=== PATIENT | male | born 1950 | race Caucasian/White ===

== ENCOUNTER → 2018-02-01 | Outpatient (CLI) | payer MEDICARE ==
--- NOTE | 2018-02-01 12:44 | US ---
EXAMINATION TYPE: US kidneys/renal and bladder DATE OF EXAM: 02/01/2018 COMPARISON: NONE CLINICAL HISTORY: N39.0 Urinary tract infection. EXAM MEASUREMENTS: Right Kidney: 11.4 x 4.6 x 5.0 cm Left Kidney: 11.4 x 6.5 x 6.7 cm Right Kidney: wnl Left Kidney: wnl Bladder: wnl Bilateral Jets seen: yes Incidental finding of cholelithiasis. There is no evidence for hydronephrosis at this point in time. No nephrolithiasis is seen. No raymond s are identified. The urinary bladder is anechoic. Bilateral ureteral jets are seen. Cortical medullary differentiation is maintained bilaterally. There is no ascites. IMPRESSION: Normal renal ultrasound. Cholelithiasis.
== END | disposition home or self-care (01) ==
LOC: RADUSWWP 10:03
PROVIDERS: ATTEND Internal Medicine
DX: K80.20 Calculus of gallbladder without cholecystitis without obstruction (principal)
CPT/HCPCS: 76770

== ENCOUNTER → 2020-02-03 | Outpatient (CLI) | payer MEDICARE ==
--- NOTE | 2020-02-03 15:07 | US ---
EXAMINATION TYPE: US kidneys/renal and bladder DATE OF EXAM: 02/03/2020 COMPARISON: NONE CLINICAL HISTORY: N39.0 UTI. Urine urges. No pain. EXAM MEASUREMENTS: Right Kidney: 10.7 x 4.9 x 5.1 cm Left Kidney: 10.7 x 5.0 x 5.7 cm Right Kidney: No hydronephrosis or masses seen Left Kidney: No hydronephrosis or masses seen Bladder: distended, anechoic Bilateral Jets seen IMPRESSION: 1. Normal renal ultrasound
== END | disposition home or self-care (01) ==
LOC: RADUSWWP 12:46
PROVIDERS: ATTEND Internal Medicine
DX: N39.0 Urinary tract infection, site not specified (principal)
CPT/HCPCS: 76770

== ENCOUNTER 2021-05-07 12:07 | Observation (INO) | payer MEDICARE ==
[2021-05-07] MEDS ORDERED: ASPIRIN 81 MG PO STA (13:10)
--- NOTE | 2021-05-07 13:12 | ED ---
General Adult HPI - General Chief complaint: Chest Pain Stated complaint: Chest pain Time Seen by Provider: 05/07/21 12:30 Source: patient, RN notes reviewed Mode of arrival: ambulatory Limitations: no limitations - History of Present Illness Initial comments: Patient is a pleasant 70-year-old male presenting to the emergency department chest discomfort. Symptoms have been waxing and waning the past 2-3 days. Symptoms are near resolved at this time. Symptoms were 5/10 prior to arrival. Discomfort feels like pressure. Patient has had a little bit of sweating today. No nausea. No diaphoresis. Patient has not noticed worsening symptoms with e xertion. - Related Data Home Medications Medication Instructions Recorded Confirmed Cholecalciferol [Vitamin D3 (25 50 mcg PO DAILY 05/07/21 05/07/21 Mcg = 1000 Iu)] lisinopriL [Zestril] 10 mg PO DAILY 05/07/21 05/07/21 Allergies Allergy/AdvReac Type Severity Reaction Status Date / Time No Known Allergies Allergy Verified 05/07/21 13:46 Review of Systems ROS Statement: Those systems with pertinent positive or pertinent negative responses have been documented in the HPI. ROS Other: All systems not noted in ROS Statement are negative. Constitutional: Denies: fever Eyes: Denies: eye pain ENT: Denies: ear pain Respiratory: Denies: cough, dyspnea Cardiovascular: Reports: as per HPI, chest pain Endocrine: Denies: fatigue Gastrointestinal: Denies: abdominal pain Genitourinary: Denies: dysuria Musculoskeletal: Denies: back pain Skin: Denies: rash Neurological: Denies: weakness Past Medical History Past Medical History: Hypertension Additional Past Medical History / Comment(s): UTIs, prostititis History of Any Multi-Drug Resistant Organisms: None Reported Past Surgical History: Hernia Repair Additional Past Surgical History / Comment(s): hemorrhoidectomy, prostate biopsy Past Psychological History: No Psychological Hx Reported Smoking Status: Never smoker Past Alcohol Use History: Occasional Past Drug Use History: None Reported General Exam Limitations: no limitations General appearance: alert, in no apparent distress Head exam: Present: normocephalic Eye exam: Present: normal appearance Neck exam: Present: normal inspection Respiratory exam: Present: normal lung sounds bilaterally. Absent: chest wall tenderness Cardiovascular Exam: Present: normal rhythm, bradycardia, normal heart sounds Expanded Peripheral pulses: 2+: Radial (R), Radial (L), Dorsalis Pedis (R), Dorsalis Pedis (L) GI/Abdominal exam: Present: soft. Absent: distended, tenderness Extremities exam: Present: normal inspection. Absent: pedal edema, calf tenderness Neurological exam: Present: alert Psychiatric exam: Present: normal affect, normal mood Skin exam: Present: normal color Course Vital Signs 05/07/21 12:36 Temperature 98 F Pulse Rate 53 L Respiratory 18 Rate Blood Pressure 137/99 O2 Sat by Pulse 98 Oximetry EKG Findings - EKG Comments: EKG Findings:: Sinus bradycardia with a rate of 52. RI 204, for screening AV block. QRS 104. QT 432. QTC 401. Normal axis. Normal QRS. Prominent T waves. Medical Decision Making - Medical Decision Making Patient reevaluated and resting comfortably in bed. Patient family updated on results and plan. Case was discussed with Dr. sweet, covering Dr. Martin who will admit. - Lab Data Result diagrams: 05/07/21 13:53 05/07/21 13:53 Lab Results 05/07/21 05/07/21 05/07/21 Range/Units 13:53 13:53 13:53 WBC 5.2 (3.8-10.6) k/uL RBC 4.33 (4.30-5.90) m/uL Hgb 13.6 (13.0-17.5) gm/dL Hct 40.1 (39.0-53.0) % MCV 92.7 (80.0-100.0) fL MCH 31.4 (25.0-35.0) pg MCHC 33.9 (31.0-37.0) g/dL RDW 12.4 (11.5-15.5) % Plt Count 205 (150-450) k/uL MPV 7.6 Neutrophils % 67 % Lymphocytes % 22 % Monocytes % 7 % Eosinophils % 1 % Basophils % 0 % Neutrophils # 3.5 (1.3-7.7) k/uL Lymphocytes # 1.1 (1.0-4.8) k/uL Monocytes # 0.4 (0-1.0) k/uL Eosinophils # 0.1 (0-0.7) k/uL Basophils # 0.0 (0-0.2) k/uL PT 10.6 (9.0-12.0) sec INR 1.0 (<1.2) APTT 24.3 (22.0-30.0) sec Sodium 137 (137-145) mmol/L Potassium 4.1 (3.5-5.1) mmol/L Chloride 104 (98-107) mmol/L Carbon Dioxide 28 (22-30) mmol/L Anion Gap 5 mmol/L BUN 20 (9-20) mg/dL Creatinine 0.82 (0.66-1.25) mg/dL Est GFR (CKD-EPI)AfAm >90 (>60 ml/min/1.73 sqM) Est GFR (CKD-EPI)NonAf 89 (>60 ml/min/1.73 sqM) Glucose 111 H (74-99) mg/dL Calcium 9.2 (8.4-10.2) mg/dL Magnesium 2.1 (1.6-2.3) mg/dL Total Bilirubin 0.5 (0.2-1.3) mg/dL AST 28 (17-59) U/L ALT 18 (4-49) U/L Alkaline Phosphatase 52 (38-126) U/L Troponin I (0.000-0.034) ng/mL Total Protein 6.3 (6.3-8.2) g/dL Albumin 3.6 (3.5-5.0) g/dL 05/07/21 Range/Units 13:53 WBC (3.8-10.6) k/uL RBC (4.30-5.90) m/uL Hgb (13.0-17.5) gm/dL Hct (39.0-53.0) % MCV (80.0-100.0) fL MCH (25.0-35.0) pg MCHC (31.0-37.0) g/dL RDW (11.5-15.5) % Plt Count (150-450) k/uL MPV Neutrophils % % Lymphocytes % % Monocytes % % Eosinophils % % Basophils % % Neutrophils # (1.3-7.7) k/uL Lymphocytes # (1.0-4.8) k/uL Monocytes # (0-1.0) k/uL Eosinophils # (0-0.7) k/uL Basophils # (0-0.2) k/uL PT (9.0-12.0) sec INR (<1.2) APTT (22.0-30.0) sec Sodium (137-145) mmol/L Potassium (3.5-5.1) mmol/L Chloride (98-107) mmol/L Carbon Dioxide (22-30) mmol/L Anion Gap mmol/L BUN (9-20) mg/dL Creatinine (0.66-1.25) mg/dL Est GFR (CKD-EPI)AfAm (>60 ml/min/1.73 sqM) Est GFR (CKD-EPI)NonAf (>60 ml/min/1.73 sqM) Glucose (74-99) mg/dL Calcium (8.4-10.2) mg/dL Magnesium (1.6-2.3) mg/dL Total Bilirubin (0.2-1.3) mg/dL AST (17-59) U/L ALT (4-49) U/L Alkaline Phosphatase (38-126) U/L Troponin I <0.012 (0.000-0.034) ng/mL Total Protein (6.3-8.2) g/dL Albumin (3.5-5.0) g/dL - Radiology Data Radiology results: image reviewed (Chest x-ray shows no acute process) Disposition Clinical Impression: Chest pain Disposition: ADMITTED IP TO THIS [facility] Is patient prescribed a controlled substance at d/c from ED?: No Referrals: Nina Martin MD [Primary Care Provider] - 1-2 days Decision Time: 15:04
--- NOTE | 2021-05-07 14:11 | XR ---
EXAMINATION TYPE: XR chest 2V DATE OF EXAM: 05/07/2021 COMPARISON: NONE HISTORY: Chest pain TECHNIQUE: 2 views FINDINGS: Heart and mediastinum are normal. Lungs are clear. Diaphragm is normal. Bony thorax appears normal. IMPRESSION: Normal chest.
[2021-05-07 14:17] LABS: Basophils % (A) 0 %; Eosinophils # (A) 0.1 k/uL (0-0.7); Eosinophils % (A) 1 %; HCT 40.1 % (39.0-53.0); HGB 13.6 gm/dL (13.0-17.5); Lymphocytes # (A) 1.1 k/uL (1.0-4.8); Lymphocytes % (A) 22 %; MCH 31.4 pg (25.0-35.0); MCHC 33.9 g/dL (31.0-37.0); MCV 92.7 fL (80.0-100.0); Mean Platelet Volume 7.6; Monocytes # (A) 0.4 k/uL (0-1.0); Monocytes % (A) 7 %; Neutrophils # (A) 3.5 k/uL (1.3-7.7); Neutrophils % (A) 67 %; Platelet Count 205 k/uL (150-450); RBC 4.33 m/uL (4.30-5.90); RDW 12.4 % (11.5-15.5); WBC 5.2 k/uL (3.8-10.6)
[2021-05-07 14:31] LABS: ALT 18 U/L (4-49); AST 28 U/L (17-59); African American GFR (CKD) >90 (>60 ml/min/1.73 sqM); Albumin 3.6 g/dL (3.5-5.0); Alkaline Phosphatase 52 U/L (38-126); Anion Gap 5 mmol/L; Blood Urea Nitrogen 20 mg/dL (9-20); Calcium 9.2 mg/dL (8.4-10.2); Carbon Dioxide 28 mmol/L (22-30); Chloride 104 mmol/L (98-107); Glucose 111 mg/dL (74-99); Magnesium 2.1 mg/dL (1.6-2.3); Non-African American GFR(CKD) 89 (>60 ml/min/1.73 sqM); Potassium 4.1 mmol/L (3.5-5.1); Sodium 137 mmol/L (137-145); Total Bilirubin 0.5 mg/dL (0.2-1.3); Total Protein 6.3 g/dL (6.3-8.2)
[2021-05-07 14:37] LABS: Partial Thromboplastin Time 24.3 sec (22.0-30.0); Prothrombin Time 10.6 sec (9.0-12.0)
[2021-05-07] MEDS ORDERED: NITROGLYCERIN SL TABS 0.4 MG TAB SUBLINGUAL PRN (15:04)
[2021-05-07] MEDS: NITROGLYCERIN OINT 1 INCH/GM PACKET TOPICAL SCH (20:04)
[2021-05-08] MEDS: NITROGLYCERIN OINT 1 INCH/GM PACKET TOPICAL SCH ×2 (00:17→05:20)
--- NOTE | 2021-05-08 03:49 | P.HPIM ---
History of Present Illness H&P Date: 05/07/21 Chief Complaint: Chest pain 70-year-old male with history of hypertension Patient comes in due to having intermittent chest pain for the past 3 days on Sunday day of presentation chest pain became persistent rated that 6 out of 10 in severity pressure-like retrosternal nonradiating associated with feeling tired and nauseated denies any shortness of breath denies any sweating or palpitations patient claims that pain is not related to activity that morning he was able to walk 4 miles his regular exercising with no limitations. However he grew concerned and decided to come to the hospital for evaluation he never had any cardiac workup in the past he denies any history of CAD. He denies smoking. Otherwise he denies fevers chills denies any coughing or upper respiratory infection symptoms denies any abdominal pain. He denies any recent traveling, immobilization of hospitalization In the ED EKG showed no acute ST changes, however it did show first-degree AV block in premature atrial contractions Blood work overall unremarkable Review of Systems Pertinent positives as noted in HPI. All other systems were reviewed and are negative Past Medical History Past Medical History: Hypertension Additional Past Medical History / Comment(s): UTIs, prostititis History of Any Multi-Drug Resistant Organisms: None Reported Past Surgical History: Hernia Repair Additional Past Surgical History / Comment(s): hemorrhoidectomy, prostate biopsy Past Anesthesia/Blood Transfusion Reactions: No Reported Reaction Past Psychological History: No Psychological Hx Reported Smoking Status: Never smoker Past Alcohol Use History: Occasional Past Drug Use History: None Reported - Past Family History Family Family Medical History: No Reported History Medications and Allergies Home Medications Medication Instructions Recorded Confirmed Type Cholecalciferol [Vitamin D3 (25 50 mcg PO DAILY 05/07/21 05/07/21 History Mcg = 1000 Iu)] lisinopriL [Zestril] 10 mg PO DAILY 05/07/21 05/07/21 History Allergies Allergy/AdvReac Type Severity Reaction Status Date / Time No Known Allergies Allergy Verified 05/07/21 13:46 Physical Exam Vitals: Vital Signs Temp Pulse Pulse Resp BP BP Pulse Ox 05/07/21 21:30 98.0 F 56 L 17 136/76 98 05/07/21 20:07 58 L 18 144/71 95 05/07/21 12:36 98 F 53 L 18 137/99 98 Intake and Output 05/07/21 05/07/21 05/08/21 14:59 22:59 06:59 Other: # Voids 0 Weight 90.718 kg 90.718 kg Constitutional: No acute distress, conversant, pleasant Eyes: Anicteric sclerae, moist conjunctiva, Pupils equal round reactive to light ENMT: NC/AT Oropharynx clear, no erythema, or exudates Neck: Supple, FROM, no masses, or JVD No carotid bruits No thyromegaly Lungs: Clear to auscultation Clear to percussion Normal respiratory effort, no accessory muscle use Cardiovascular: Heart regular in rate and rhythm, No murmurs, gallops, or rubs No peripheral edema Abdominal: Soft Nontender, no guarding, rebound or rigidity Abdomen moving with respiration Normoactive bowel sounds No hepatomegaly, No splenomegaly No palpable mass No abdominal wall hernia noted Skin: Normal temperature, tone, texture, turgor No induration No subcutaneous nodules No rash, lesions No ulcers Extremities: No digital cyanosis No clubbing Pedal pulses intact and symmetrical Radial pulses intact and symmetrical No calf tenderness Psychiatric: Alert and oriented to person, place and time Appropriate affect fair judgement Neuro Muscles Strength 5/5 in all 4 extremities Sensation to light touch grossly present throughout Cranial nerves II-XII grossly intact No focal sensory deficits Lymphatics: no palpable cervical or supraclavicular , or inguinal lymph nodes Results CBC & Chem 7: 05/07/21 13:53 05/07/21 13:53 Labs: Abnormal Lab Results - Last 24 Hours (Table) 05/07/21 Range/Units 13:53 Glucose 111 H (74-99) mg/dL Thrombosis Risk Factor Assmnt - Choose All That Apply Each Risk Factor Represents 2 Points: Age 61-74 years Thrombosis Risk Factor Assessment Total Risk Factor Score: 2 Thrombosis Risk Factor Assessment Level: Low Risk Assessment and Plan Assessment: Atypical chest pain rule out ACS Aspirin Nitro when necessary Cardiac monitoring Trend troponins EKG no acute see changes Cardiology consult Check lipid panel, A1c Hypertension Resume blood pressure medications DVT prophylaxis heparin subcu 3 times a day Anticipated length of stay less than 2 midnights Despite this her to home
[2021-05-08 07:47] LABS: African American GFR (CKD) >90 (>60 ml/min/1.73 sqM); Anion Gap 5 mmol/L; Blood Urea Nitrogen 15 mg/dL (9-20); Calcium 9.2 mg/dL (8.4-10.2); Carbon Dioxide 28 mmol/L (22-30); Chloride 106 mmol/L (98-107); Glucose 108 mg/dL (74-99); Non-African American GFR(CKD) 85 (>60 ml/min/1.73 sqM); Potassium 4.1 mmol/L (3.5-5.1); Sodium 139 mmol/L (137-145)
[2021-05-08 07:49] VITALS: BP 133/73; PULSE 54; RESP 16; TEMP 98.2
[2021-05-08] MEDS ORDERED: HEPARIN SODIUM,PORCINE/PF 5,000 UNIT/0.5 ML SYRINGE SQ SCH (08:00)
[2021-05-08] MEDS ORDERED: ASPIRIN 325 MG TAB PO SCH (09:00)
[2021-05-08] MEDS ORDERED: lisinopriL 10 MG TAB PO SCH (09:00)
[2021-05-08 12:18] LABS: Basophils # (A) 0.02 X 10*3/uL (0.00-0.10); Basophils % (A) 0.4 %; Eosinophils # (A) 0.14 X 10*3/uL (0.04-0.35); Eosinophils % (A) 2.9 %; HCT 38.4 % (39.6-50.0); HGB 12.8 g/dL (13.0-17.0); Lymphocytes # (A) 1.62 X 10*3/uL (0.90-5.00); Lymphocytes % (A) 33.1 %; MCH 30.5 pg (27.0-32.0); MCHC 33.3 g/dL (32.0-37.0); MCV 91.4 fL (80.0-97.0); Mean Platelet Volume 10.2 fL (9.5-12.2); Monocytes # (A) 0.67 X 10*3/uL (0.20-1.00); Monocytes % (A) 13.7 %; Neutrophils # (A) 2.43 X 10*3/uL (1.80-7.70); Neutrophils % (A) 49.7 %; Platelet Count 203 X 10*3/uL (140-440); RDW 12.5 % (11.5-14.5); WBC 4.89 X 10*3/uL (4.50-10.00)
[2021-05-08 13:58] LABS: Chol/HDL Ratio 4.05 Ratio; LDL Cholesterol,Calculated 104.5 mg/dL (0.0-131.0)
--- NOTE | 2021-05-08 14:53 | P.CRDCN ---
History of Present Illness Consult date: 05/08/21 Consult reason: chest pain History of present illness: Patient was discharged before being seen by cardiology. Past Medical History Past Medical History: Hypertension Additional Past Medical History / Comment(s): UTIs, prostititis History of Any Multi-Drug Resistant Organisms: None Reported Past Surgical History: Hernia Repair Additional Past Surgical History / Comment(s): hemorrhoidectomy, prostate biopsy Past Anesthesia/Blood Transfusion Reactions: No Reported Reaction Past Psychological History: No Psychological Hx Reported Smoking Status: Never smoker Past Alcohol Use History: Occasional Past Drug Use History: None Reported - Past Family History Family Family Medical History: No Reported History Medications and Allergies Home Medications Medication Instructions Recorded Confirmed Type Cholecalciferol [Vitamin D3 (25 50 mcg PO DAILY 05/07/21 05/07/21 History Mcg = 1000 Iu)] lisinopriL [Zestril] 10 mg PO DAILY 05/07/21 05/07/21 History Aspirin 81 mg PO DAILY #30 tab 05/08/21 Rx Atorvastatin [Lipitor] 40 mg PO HS #30 tablet 05/08/21 Rx Allergies Allergy/AdvReac Type Severity Reaction Status Date / Time No Known Allergies Allergy Verified 05/07/21 13:46 Physical Exam Vitals: Vital Signs Temp Pulse Pulse Resp BP BP Pulse Ox 05/08/21 08:00 16 05/08/21 07:00 98.2 F 54 L 16 133/73 95 05/08/21 02:04 98.0 F 50 L 17 116/69 96 05/07/21 21:30 98.0 F 56 L 17 136/76 98 05/07/21 20:07 58 L 18 144/71 95 Intake and Output 05/07/21 05/08/21 05/08/21 22:59 06:59 14:59 Other: Voiding Method Toilet # Voids 0 1 Weight 90.718 kg Results 05/08/21 07:14 05/08/21 07:14 Cardiac Enzymes 05/07/21 05/07/21 Range/Units 19:56 23:02 Troponin I <0.012 <0.012 (0.000-0.034) ng/mL Lipids 05/08/21 Range/Units 07:14 Triglycerides 83.50 (0.00-149.00) mg/dL Cholesterol 161.00 (0.00-200.00) mg/dL HDL Cholesterol 39.80 L (40.00-60.00) mg/dL Cholesterol/HDL Ratio 4.05 Ratio CBC 05/08/21 Range/Units 07:14 WBC 4.89 (4.50-10.00) X 10*3/uL RBC 4.20 L (4.40-5.60) X 10*6/uL Hgb 12.8 L (13.0-17.0) g/dL Hct 38.4 L (39.6-50.0) % Plt Count 203 (140-440) X 10*3/uL Comprehensive Metabolic Panel 05/08/21 Range/Units 07:14 Sodium 139 (137-145) mmol/L Potassium 4.1 (3.5-5.1) mmol/L Chloride 106 (98-107) mmol/L Carbon Dioxide 28 (22-30) mmol/L BUN 15 (9-20) mg/dL Creatinine 0.91 (0.66-1.25) mg/dL Glucose 108 H (74-99) mg/dL Calcium 9.2 (8.4-10.2) mg/dL Intake and Output 05/07/21 05/08/21 05/08/21 22:59 06:59 14:59 Other: Voiding Method Toilet # Voids 0 1 Weight 90.718 kg 05/08/21 07:14 05/08/21 07:14
--- NOTE | 2021-05-08 15:06 | P.DS ---
Providers Date of admission: 05/07/21 15:04 Expected date of discharge: 05/08/21 Attending physician: Bertram Hoang MD Consults: 05/07/21 15:04 Consult Physician Urgent Consulting Provider: Hiren Savage Consult Reason/Comments: cp Do you want consulting provider notified?: Yes Primary care physician: Nina Martin MD Hospital Course: Atypical chest pain rule out ACS Patient was admitted for atypical chest pain. Trops trended negative. EKG was non-ischemic, sinus kermit with PACs. Pt started on ASA, atorvastatin. Pain had completely resolved in the ER, and patient remained without pain overnight. He requested discharge with outpatient cardiology follow up given that testing to this point returned normal. I did highly recommend he follow up with cardiology as soon as possible for consideration of stress test and echo. Discharged on ASA, atorvastatin for risk modification until seen by cardiology. Hypertension Resumed blood pressure medications Assessment: Gen: awake, alert HEENT: normocephalic, atraumatic, good hearing acuity, moist mucous membranes Resp: good air exchange, breathing comfortably with no accessory muscle use, clear to auscultation bilaterally CVS: good distal perfusion x 4, regular rate and rhythm without murmurs GI: soft, NTTP, ND : no SPT, no CVAT, pretty catheter not present MSK: no pitting edema, no clubbing Neuro: non-focal, moving all extremities Psych: cooperative, euthymic mood Patient Condition at Discharge: Good Plan - Discharge Summary Discharge Rx Participant: No New Discharge Prescriptions: New Aspirin 81 mg PO DAILY #30 tab Atorvastatin [Lipitor] 40 mg PO HS #30 tablet Continue lisinopriL [Zestril] 10 mg PO DAILY Cholecalciferol [Vitamin D3 (25 Mcg = 1000 Iu)] 50 mcg PO DAILY Discharge Medication List Cholecalciferol [Vitamin D3 (25 Mcg = 1000 Iu)] 50 mcg PO DAILY 05/07/21 [History] lisinopriL [Zestril] 10 mg PO DAILY 05/07/21 [History] Aspirin 81 mg PO DAILY #30 tab 05/08/21 [Rx] Atorvastatin [Lipitor] 40 mg PO HS #30 tablet 05/08/21 [Rx] Follow up Appointment(s)/Referral(s): Hiren Savage MD [STAFF PHYSICIAN] - 1 Week (Please call and make appointment to see) Nina Martin MD [Primary Care Provider] - 1-2 days (Please make appointment to followup) Patient Instructions/Handouts: Chest Pain (DC), Heart Healthy Diet (DC) Discharge Disposition: HOME SELF-CARE
[2021-05-09] MEDS ORDERED: ASPIRIN 81 MG PO SCH (09:00)
== END 2021-05-08 11:36 | disposition home or self-care (01) ==
LOC: EC 12:07 → 6NMEDSUR 15:04
PROVIDERS: ADMIT Internal Medicine; ATTEND Internal Medicine
DX: R07.2 Precordial pain (principal); I10 Essential (primary) hypertension; I49.1 Atrial premature depolarization; I44.0 Atrioventricular block, first degree; Z20.822 Contact with and (suspected) exposure to COVID-19; R00.1 Bradycardia, unspecified; R11.0 Nausea; R53.83 Other fatigue; Z79.899 Other long term (current) drug therapy; Z79.82 Long term (current) use of aspirin; Z87.440 Personal history of urinary (tract) infections; Z87.19 Personal history of other diseases of the digestive system
CPT/HCPCS: 99285; 36415; 93005; 85379; 80061; 80053; 80048; 83735; 84484; 85025 ×2; 85610; 85730; 83036; 87635; 71046; G0378 ×2

== ENCOUNTER 2023-02-06 17:49 | Emergency (ER) | payer MEDICARE ==
[2023-02-06 18:41] VITALS: RESP 18
--- NOTE | 2023-02-06 19:00 | ED ---
General Adult HPI - General Chief complaint: Abdominal Pain Stated complaint: urinary retention Time Seen by Provider: 02/06/23 18:45 Source: patient, family, RN notes reviewed Mode of arrival: ambulatory Limitations: no limitations - History of Present Illness Initial comments: Patient is a pleasant 72-year-old male presenting to the emergency department with concern for urinary retention. Patient had dysuria for the past day however unable to urinate since early this morning. Patient has had some minimal dribbling. Patient does have history of similar symptoms once previously need a Barahona catheter. Patient does have some suprapubic fullness. No fever. Patient was started on Cipro when he had his urine tested yesterday. - Related Data Home Medications Medication Instructions Recorded Confirmed Cholecalciferol [Vitamin D3 (25 50 mcg PO DAILY 05/07/21 05/07/21 Mcg = 1000 Iu)] lisinopriL [Zestril] 10 mg PO DAILY 05/07/21 05/07/21 Previous Rx's Medication Instructions Recorded Aspirin 81 mg PO DAILY #30 tab 05/08/21 Atorvastatin [Lipitor] 40 mg PO HS #30 tablet 05/08/21 Tamsulosin [Flomax] 0.4 mg PO DAILY #14 cap 02/06/23 Allergies Allergy/AdvReac Type Severity Reaction Status Date / Time No Known Allergies Allergy Verified 02/06/23 18:33 Review of Systems ROS Statement: Those systems with pertinent positive or pertinent negative responses have been documented in the HPI. ROS Other: All systems not noted in ROS Statement are negative. Constitutional: Denies: fever Eyes: Denies: eye pain ENT: Denies: ear pain Respiratory: Denies: cough Cardiovascular: Denies: chest pain Endocrine: Denies: fatigue Gastrointestinal: Reports: as per HPI Genitourinary: Reports: as per HPI Musculoskeletal: Denies: back pain Past Medical History Past Medical History: Hypertension Additional Past Medical History / Comment(s): UTIs, prostititis History of Any Multi-Drug Resistant Organisms: None Reported Past Surgical History: Hernia Repair Additional Past Surgical History / Comment(s): hemorrhoidectomy, prostate biopsy, skin ca removal 12/19 Past Anesthesia/Blood Transfusion Reactions: No Reported Reaction Past Psychological History: No Psychological Hx Reported Smoking Status: Never smoker Past Alcohol Use History: Occasional Past Drug Use History: None Reported - Past Family History Family Family Medical History: No Reported History General Exam Limitations: no limitations General appearance: alert, in no apparent distress Head exam: Present: normocephalic Eye exam: Present: normal appearance Neck exam: Present: normal inspection Respiratory exam: Present: normal lung sounds bilaterally Cardiovascular Exam: Present: regular rate, normal rhythm GI/Abdominal exam: Present: soft. Absent: distended, tenderness exam: Present: normal inspection. Absent: testicular tenderness, scrotal swelling Extremities exam: Present: normal inspection Neurological exam: Present: alert Psychiatric exam: Present: normal affect, normal mood Skin exam: Present: normal color Course Vital Signs 02/06/23 18:33 Temperature 100.1 F H Pulse Rate 92 Respiratory 18 Rate Blood Pressure 137/73 O2 Sat by Pulse 98 Oximetry Medical Decision Making - Medical Decision Making Was pt. sent in by a medical professional or institution (ARON Ingram, CHIEF ENGINEER PRODUCTION, urgent care, hospital, or custodial...) When possible be specific @ -No Did you speak to anyone other than the patient for history (EMS, parent, family, police, friend...)? What history was obtained from this source @ -Family is present to help provide history including history of similar incident previously Did you review nursing and triage notes (agree or disagree)? Why? @ -I reviewed and agree with nursing and triage notes Were old charts reviewed (outside hosp., previous admission, EMS record, old EKG, old radiological studies, urgent care reports/EKG's, custodial records)? Report findings @ -No old charts were reviewed Differential Diagnosis (chest pain, altered mental status, abdominal pain women, abdominal pain men, vaginal bleeding, weakness, fever, dyspnea, syncope, headache, dizziness, GI bleed, back pain, seizure, CVA, palpatations, mental health, musculoskeletal)? @ -Differential Abdominal Pain Men: Appendicitis, cholecystitis, diverticulosis, ischemic bowel, pancreatitis, hepatitis, UTI, gastroenteritis, AAA, incarcerated hernia, bowel obstruction, constipation, inflammatory bowel, hepatitis, peptic ulcer disease, splenic infarction, perforated viscus, testicular torsion, this is not meant to be an all-inclusive list EKG interpreted by me (3pts min.). @ -As above X-rays interpreted by me (1pt min.). @ -None done CT interpreted by me (1pt min.). @ -None done U/S interpreted by me (1pt. min.). @ -None done What testing was considered but not performed or refused? (CT, X-rays, U/S, labs)? Why? @ -None What meds were considered but not given or refused? Why? @ -None Did you discuss the management of the patient with other professionals (professionals i.e. , PA, CHIEF ENGINEER PRODUCTION, lab, RT, psych nurse, social media developer, stoker mechanic, teacher, fire officer, case monitor)? Give summary @ -No Was smoking cessation discussed for >3mins.? @ -No Was critical care preformed (if so, how long)? @ -No Were there social determinants of health that impacted care today? How? (Homelessness, low income, unemployed, alcoholism, drug addiction, transportation, low edu. Level, literacy, decrease access to med. care, snf, rehab)? @ -No Was there de-escalation of care discussed even if they declined (Discuss DNR or withdrawal of care, Hospice)? DNR status @ -No What co-morbidities impacted this encounter? (DM, HTN, Smoking, COPD, CAD, Cancer, CVA, ARF, Chemo, Hep., AIDS, mental health diagnosis, sleep apnea, morbid obesity)? @ -None Was patient admitted / discharged? Hospital course, mention meds given and route, prescriptions, significant lab abnormalities, going to OR and other pertinent info. @ -Patient had Barahona catheter placed with resolution of symptoms. Patient be discharged with urology follow-up Undiagnosed new problem with uncertain prognosis? @ -No Drug Therapy requiring intensive monitoring for toxicity (Heparin, Nitro, Insulin, Cardizem)? @ -No Were any procedures done? @ -No Diagnosis/symptom? @ -Urinary retention Acute, or Chronic, or Acute on Chronic? @ -Acute Uncomplicated (without systemic symptoms) or Complicated (systemic symptoms)? @ -default Side effects of treatment? @ -No Exacerbation, Progression, or Severe Exacerbation? @ -No Poses a threat to life or bodily function? How? (Chest pain, [place], [place], pneumonia, PE, COPD, DKA, ARF, appy, cholecystitis, CVA, Diverticulitis, Homicidal, Suicidal, threat to staff... and all critical care pts) @ -No Disposition Clinical Impression: Urinary retention Disposition: HOME SELF-CARE Condition: Stable Instructions (If sedation given, give patient instructions): Urinary Retention in Men (ED) Additional Instructions: Continue antibiotic. Prescription sent to pharmacy. Please do follow-up with your primary care physician and urology in the next couple days for recheck. Return for problems with catheter, abdominal pain, fevers, worsening symptoms or other concerns. Prescriptions: Tamsulosin [Flomax] 0.4 mg PO DAILY #14 cap Is patient prescribed a controlled substance at d/c from ED?: No Referrals: Ryan Gray MD [Primary Care Provider] - 1-2 days Rodrigo Bowers MD [STAFF PHYSICIAN] - 1-2 days Time of Disposition: 19:57
[2023-02-06 20:07] VITALS: BP 131/75; PULSE 76; TEMP 98.9
== END 2023-02-06 20:07 | disposition home or self-care (01) ==
LOC: EC 17:49
DX: R33.9 Retention of urine, unspecified (principal); I10 Essential (primary) hypertension
CPT/HCPCS: 51702; 99283

== ENCOUNTER 2023-11-12 11:53 | Emergency (ER) | payer MEDICARE ==
[2023-11-12 12:42] VITALS: TEMP 97.4
--- NOTE | 2023-11-12 12:47 | ED ---
General Adult HPI - General Chief complaint: Dizziness Stated complaint: Dizziness, Nausea Time Seen by Provider: 11/12/23 12:15 Source: patient, family, RN notes reviewed, old records reviewed Mode of arrival: ambulatory Limitations: no limitations - History of Present Illness Initial comments: This is a 73-year-old male who presents to the emergency department he felt dizzy and was feeling like he could not go up on the scaffolding because he was unsteady. Patient states he was mildly nauseous but did not vomit. Patient states sitting here he does not feel dizzy but if he gets up and moves around he is dizzy still. Patient states the dizziness now is better than it was earlier. Patient denies any headache patient denies any ringing in the ears or decreased hearing recently. Patient denies any numbness or weakness of any extremities. Patient has any chest pain or palpitations. - Related Data Home Medications Medication Instructions Recorded Confirmed lisinopriL [Zestril] 10 mg PO DAILY 05/07/21 11/12/23 Cholecalciferol (Vitamin D3) 50 mcg PO DAILY 11/12/23 11/12/23 [Vitamin D3 (50 Mcg = 2000 Iu)] Ketoconazole 2% Cream [Nizoral 2%] 1 applic TOPICAL DAILY 11/12/23 11/12/23 Triamcinolone 0.1% Cream [Kenalog 1 applicatio TOPICAL BID PRN 11/12/23 11/12/23 0.1% Cream] Previous Rx's Medication Instructions Recorded Meclizine [Antivert] 25 mg PO TID #20 tab 11/12/23 Allergies Allergy/AdvReac Type Severity Reaction Status Date / Time No Known Allergies Allergy Verified 11/12/23 13:06 Review of Systems ROS Statement: Those systems with pertinent positive or pertinent negative responses have been documented in the HPI. ROS Other: All systems not noted in ROS Statement are negative. Past Medical History Past Medical History: Hypertension Additional Past Medical History / Comment(s): UTIs, prostititis History of Any Multi-Drug Resistant Organisms: None Reported Past Surgical History: Hernia Repair Additional Past Surgical History / Comment(s): hemorrhoidectomy, prostate biopsy, skin ca removal 12/19 Past Anesthesia/Blood Transfusion Reactions: No Reported Reaction Past Psychological History: No Psychological Hx Reported Smoking Status: Never smoker Past Alcohol Use History: Occasional Past Drug Use History: None Reported - Past Family History Family Family Medical History: No Reported History General Exam - General Exam Comments Initial Comments: GENERAL: Patient is well-developed and well-nourished. Patient is nontoxic and well-hydrated and is in mild distress. ENT: Neck is soft and supple. No significant lymphadenopathy is noted. Oropharynx is clear. Moist mucous membranes. Neck has full range of motion without eliciting any pain. EYES: The sclera were anicteric and conjunctiva were pink and moist. Extraocular movements were intact and pupils were equal round and reactive to light. Eyelids were unremarkable. PULMONARY: Unlabored respirations. Good breath sounds bilaterally. No audible rales rhonchi or wheezing was noted. CARDIOVASCULAR: There is a regular rate and rhythm without any murmurs gallops or rubs. ABDOMEN: Soft and nontender with normal bowel sounds. SKIN: Skin is clear with no lesions or rashes and otherwise unremarkable. NEUROLOGIC: Patient is alert and oriented x3. Cranial nerves II through XII are grossly intact. Motor and sensory are also intact. Normal speech, volume and content. Symmetrical smile. MUSCULOSKELETAL: Normal extremities with adequate strength and full range of motion. LYMPHATICS: No significant lymphadenopathy is noted PSYCHIATRIC: Normal psychiatric evaluation. Limitations: no limitations Course Vital Signs 11/12/23 12:05 Temperature 97.4 F L Pulse Rate 60 Respiratory 18 Rate Blood Pressure 129/80 O2 Sat by Pulse 97 Oximetry Medical Decision Making - Medical Decision Making EKG is interpreted by myself EKG shows sinus bradycardia 56 bpm HI is 240 QRS is 108 QT interval is 457 QTc is [address] segment ovation or depression Was pt. sent in by a medical professional or institution (ARON Ingram, SECRETARY OFFICE CLERK, urgent care, hospital, or fci...) When possible be specific @ -No Did you speak to anyone other than the patient for history (EMS, parent, family, police, friend...)? What history was obtained from this source @ -No Did you review nursing and triage notes (agree or disagree)? Why? @ -I reviewed and agree with nursing and triage notes Were old charts reviewed (outside hosp., previous admission, EMS record, old EKG, old radiological studies, urgent care reports/EKG's, fci records)? Report findings @ -No old charts were reviewed Differential Diagnosis (chest pain, altered mental status, abdominal pain women, abdominal pain men, vaginal bleeding, weakness, fever, dyspnea, syncope, headache, dizziness, GI bleed, back pain, seizure, CVA, palpatations, mental health, musculoskeletal)? @ -Differential Dizziness: Benign paroxysmal positional Vertigo, Menieres disease, otitis media, acoustic neuroma, vertebrobasilar insufficiency, cerebellar stroke, encephalitis, hyp ovolemic, arrhythmia, coronary artery syndrome, anemia, this is not meant to be an all-inclusive list EKG interpreted by me (3pts min.). @ -As above X-rays interpreted by me (1pt min.). @ -Chest x-ray shows no acute normality CT interpreted by me (1pt min.). @ -CT of the brain shows no acute abnormality U/S interpreted by me (1pt. min.). @ -None done What testing was considered but not performed or refused? (CT, X-rays, U/S, labs)? Why? @ -None What meds were considered but not given or refused? Why? @ -None Did you discuss the management of the patient with other professionals (professionals i.e. , PA, SECRETARY OFFICE CLERK, lab, RT, psych nurse, social science instructor, sales representative, teacher, strike warfare/missile systems officer, case finisher)? Give summary @ -No Was smoking cessation discussed for >3mins.? @ -No Was critical care preformed (if so, how long)? @ -No Were there social determinants of health that impacted care today? How? ( Homelessness, low income, unemployed, alcoholism, drug addiction, transportation, low edu. Level, literacy, decrease access to med. care, longterm, rehab)? @ -No Was there de-escalation of care discussed even if they declined (Discuss DNR or withdrawal of care, Hospice)? DNR status @ -No What co-morbidities impacted this encounter? (DM, HTN, Smoking, COPD, CAD, Cancer, CVA, ARF, Chemo, Hep., AIDS, mental health diagnosis, sleep apnea, morbid obesity)? @ -None Was patient admitted / discharged? Hospital course, mention meds given and route, prescriptions, significant lab abnormalities, going to OR and other pertinent info. @ -Patient was given Zofran for nausea and Antivert for dizziness. Patient was able to ambulate but still felt a little dizzy but he was going to go home with an Antivert prescription. Undiagnosed new problem with uncertain prognosis? @ -No Drug Therapy requiring intensive monitoring for toxicity (Heparin, Nitro, Insulin, Cardizem)? @ -No Were any procedures done? @ -No Diagnosis/symptom? @ -Vertigo Acute, or Chronic, or Acute on Chronic? @ -Acute Uncomplicated (without systemic symptoms) or Complicated (systemic symptoms)? @ -Complicated Side effects of treatment? @ -No Exacerbation, Progression, or Severe Exacerbation? @ -No Poses a threat to life or bodily function? How? (Chest pain, USA, [place], pneumonia, PE, COPD, DKA, ARF, appy, cholecystitis, CVA, Diverticulitis, Homicidal, Suicidal, threat to staff... and all critical care pts) @ -No - Lab Data Result diagrams: 11/12/23 12:40 11/12/23 12:40 Lab Results 11/12/23 11/12/23 11/12/23 Range/Units 12:40 12:40 12:40 WBC 5.7 (3.8-10.6) k/uL RBC 4.58 (4.30-5.90) m/uL Hgb 13.6 (13.0-17.5) gm/dL Hct 40.9 (39.0-53.0) % MCV 89.4 (80.0-100.0) fL MCH 29.7 (25.0-35.0) pg MCHC 33.3 (31.0-37.0) g/dL RDW 12.9 (11.5-15.5) % Plt Count 224 (150-450) k/uL MPV 7.3 Neutrophils % 71 % Lymphocytes % 19 % Monocytes % 7 % Eosinophils % 1 % Basophils % 0 % Neutrophils # 4.1 (1.3-7.7) k/uL Lymphocytes # 1.1 (1.0-4.8) k/uL Monocytes # 0.4 (0-1.0) k/uL Eosinophils # 0.1 (0-0.7) k/uL Basophils # 0.0 (0-0.2) k/uL PT 11.2 (10.0-12.5) sec INR 1.0 (<1.2) APTT 22.8 (22.0-30.0) sec Sodium 138 (137-145) mmol/L Potassium 3.8 (3.5-5.1) mmol/L Chloride 109 H (98-107) mmol/L Carbon Dioxide 24 (22-30) mmol/L Anion Gap 5 mmol/L BUN 22 H (9-20) mg/dL Creatinine 0.86 (0.66-1.25) mg/dL Est GFR (CKD-EPI)AfAm >90 (>60 ml/min/1.73 sqM) Est GFR (CKD-EPI)NonAf 86 (>60 ml/min/1.73 sqM) Glucose 123 H (74-99) mg/dL Calcium 8.9 (8.4-10.2) mg/dL Magnesium 1.8 (1.6-2.3) mg/dL Total Bilirubin 0.7 (0.2-1.3) mg/dL AST 27 (17-59) U/L ALT 22 (4-49) U/L Alkaline Phosphatase 69 (38-126) U/L Troponin I (0.000-0.034) ng/mL Total Protein 6.5 (6.3-8.2) g/dL Albumin 3.8 (3.5-5.0) g/dL 11/12/23 Range/Units 12:40 WBC (3.8-10.6) k/uL RBC (4.30-5.90) m/uL Hgb (13.0-17.5) gm/dL Hct (39.0-53.0) % MCV (80.0-100.0) fL MCH (25.0-35.0) pg MCHC (31.0-37.0) g/dL RDW (11.5-15.5) % Plt Count (150-450) k/uL MPV Neutrophils % % Lymphocytes % % Monocytes % % Eosinophils % % Basophils % % Neutrophils # (1.3-7.7) k/uL Lymphocytes # (1.0-4.8) k/uL Monocytes # (0-1.0) k/uL Eosinophils # (0-0.7) k/uL Basophils # (0-0.2) k/uL PT (10.0-12.5) sec INR (<1.2) APTT (22.0-30.0) sec Sodium (137-145) mmol/L Potassium (3.5-5.1) mmol/L Chloride (98-107) mmol/L Carbon Dioxide (22-30) mmol/L Anion Gap mmol/L BUN (9-20) mg/dL Creatinine (0.66-1.25) mg/dL Est GFR (CKD-EPI)AfAm (>60 ml/min/1.73 sqM) Est GFR (CKD-EPI)NonAf (>60 ml/min/1.73 sqM) Glucose (74-99) mg/dL Calcium (8.4-10.2) mg/dL Magnesium (1.6-2.3) mg/dL Total Bilirubin (0.2-1.3) mg/dL AST (17-59) U/L ALT (4-49) U/L Alkaline Phosphatase (38-126) U/L Troponin I <0.012 (0.000-0.034) ng/mL Total Protein (6.3-8.2) g/dL Albumin (3.5-5.0) g/dL Disposition Clinical Impression: Vertigo Disposition: HOME SELF-CARE Condition: Good Instructions (If sedation given, give patient instructions): Vertigo (ED) Prescriptions: Meclizine [Antivert] 25 mg PO TID #20 tab Is patient prescribed a controlled substance at d/c from ED?: No Referrals: Al Gray MD [Primary Care Provider] - 1-2 days Time of Disposition: 14:03
[2023-11-12] MEDS: ONDANSETRON 4 MG/2 ML VIAL IVP STA (12:56)
[2023-11-12] MEDS: MECLIZINE 25 MG TAB PO STA (12:56)
[2023-11-12] MEDS: SODIUM CHLORIDE 0.9% 500 ML 500 ML IV STA (12:59)
[2023-11-12 13:09] LABS: Basophils % (A) 0 %; Eosinophils # (A) 0.1 k/uL (0-0.7); Eosinophils % (A) 1 %; HCT 40.9 % (39.0-53.0); HGB 13.6 gm/dL (13.0-17.5); Lymphocytes # (A) 1.1 k/uL (1.0-4.8); Lymphocytes % (A) 19 %; MCH 29.7 pg (25.0-35.0); MCHC 33.3 g/dL (31.0-37.0); MCV 89.4 fL (80.0-100.0); Mean Platelet Volume 7.3; Monocytes # (A) 0.4 k/uL (0-1.0); Monocytes % (A) 7 %; Neutrophils # (A) 4.1 k/uL (1.3-7.7); Neutrophils % (A) 71 %; Platelet Count 224 k/uL (150-450); RBC 4.58 m/uL (4.30-5.90); RDW 12.9 % (11.5-15.5); WBC 5.7 k/uL (3.8-10.6)
[2023-11-12 13:11] LABS: ALT 22 U/L (4-49); AST 27 U/L (17-59); African American GFR (CKD) >90 (>60 ml/min/1.73 sqM); Albumin 3.8 g/dL (3.5-5.0); Alkaline Phosphatase 69 U/L (38-126); Anion Gap 5 mmol/L; Blood Urea Nitrogen 22 mg/dL (9-20); Calcium 8.9 mg/dL (8.4-10.2); Carbon Dioxide 24 mmol/L (22-30); Chloride 109 mmol/L (98-107); Glucose 123 mg/dL (74-99); Magnesium 1.8 mg/dL (1.6-2.3); Non-African American GFR(CKD) 86 (>60 ml/min/1.73 sqM); Potassium 3.8 mmol/L (3.5-5.1); Sodium 138 mmol/L (137-145); Total Bilirubin 0.7 mg/dL (0.2-1.3); Total Protein 6.5 g/dL (6.3-8.2)
[2023-11-12 13:13] LABS: Partial Thromboplastin Time 22.8 sec (22.0-30.0); Prothrombin Time 11.2 sec (10.0-12.5)
--- NOTE | 2023-11-12 13:18 | XR ---
EXAMINATION TYPE: XR chest 2V DATE OF EXAM: 11/12/2023 COMPARISON: 05/07/2021 HISTORY: 73-year-old male with chest pain TECHNIQUE: PA and lateral views FINDINGS: The cardiomediastinal silhouette, aorta, and pulmonary vasculature are within normal limits. Lungs an d pleural spaces are clear. IMPRESSION: No acute cardiopulmonary process.
--- NOTE | 2023-11-12 13:33 | CT ---
EXAMINATION TYPE: CT brain wo con CT DLP: 1224.4 mGycm, Automated exposure control for dose reduction was used. DATE OF EXAM: 11/12/2023 1:27 PM COMPARISON: None. CLINICAL INDICATION:Male, 73 years old with history of Ataxia, Ataxia and dizziness TECHNIQUE: Brain: Axial CT images of the brain were obtained with coronal and sagittal reformats created and rev iewed. Contrast used: None. Oral contrast used: None. FINDINGS: Brain: Extra-axial spaces: No abnormal extra-axial fluid collections. Ventricular system: Dilatation in proportion to cerebral atrophy. Cerebral parenchyma: Cerebral atrophy. No acute intraparenchymal hemorrhage or mass effect. The zamora -white junction is well differentiated. Scattered hypoattenuating areas are seen within the white mat ter. Cerebellum: Unremarkable. Mass effect: No evidence of midline shift. Intracranial vasculature: Atherosclerotic calcifications of the intracranial vessels. Soft tissues: Normal. Calvarium/osseous structures: No depressed skull fracture. Paranasal sinuses and mastoid air cells: Mild scattered paranasal sinus disease. Visualized orbits: Orbital contents are intact. IMPRESSION: 1. No acute intracranial process. 2. Nonspecific white matter changes, likely secondary to chronic small vessel ischemic disease.
[2023-11-12 14:48] VITALS: BP 144/82; PULSE 55; RESP 16
== END 2023-11-12 14:11 | disposition home or self-care (01) ==
LOC: EC 11:53
DX: R42 Dizziness and giddiness (principal)
CPT/HCPCS: 36415; 93005; 80053; 83735; 84484; 85025; 85610; 85730; 71046; 70450; 99284; 96374; 96361; J2405